=== PATIENT | male | born 1980 | race Caucasian/White ===

== ENCOUNTER 2017-10-14 02:30 | Emergency (ER) | payer BC ==
[~2017-10-14] VITALS: Ht 177.8 cm; Wt 77.0 kg
[2017-10-14 05:49] VITALS: BP 128/62
== END 2017-10-14 07:00 | disposition left against medical advice (07) ==
LOC: ER 02:30
DX: R10.9 Unspecified abdominal pain (principal)
CPT/HCPCS: 99281; 99283